=== PATIENT | female | born 1995 | race Caucasian/White ===

== ENCOUNTER 2017-06-21 18:02 | Inpatient (IN) | payer SELFPAY ==
[2017-06-21] MEDS ORDERED: LORazepam TAB(*) 1 MG PO ONE (19:16)
[2017-06-21 19:54] LABS: Hematocrit 42 % (35-47); Hemoglobin 13.6 g/dl (12.0-16.0); Mean Corpuscular HGB Conc 33 g/dl (31-36); Mean Corpuscular Hemoglobin 26 pg (27-31); Mean Corpuscular Volume 80 fL (80-97); Mean Platelet Volume 9 um3 (7.4-10.4); Red Blood Count 5.19 10^6/ul (4.0-5.4); Red Cell Distribution Width 14 % (10.5-15); White Blood Count 6.7 10^3/ul (3.5-10.8)
[2017-06-21 20:04] LABS: Urine Bilirubin Negative (Negative); Urine Glucose Negative (Negative); Urine Nitrite Negative (Negative)
[2017-06-21 20:08] LABS: ALT 24 U/L (7-52); AST 26 U/L (13-39); Albumin 4.4 g/dL (3.2-5.2); Alkaline Phosphatase 70 U/L (34-104); Anion Gap 9 mmol/L (2-11); BUN/Creatinine Ratio 17.6 (8-20); Blood Urea Nitrogen 15 mg/dL (6-24); CO2 Carbon Dioxide 26 mmol/L (22-32); Calcium 9.8 mg/dL (8.6-10.3); Chloride 103 mmol/L (101-111); EGFR African American 110.8 (>60); EGFR Non-African American 86.2 (>60); Globulin 3.5 g/dL (2-4); Glucose 93 mg/dL (70-100); Potassium 4.1 mmol/L (3.5-5.0); Sodium 138 mmol/L (133-145); Total Protein 7.9 g/dL (6.4-8.9)
[2017-06-21 20:15] LABS: Benzodiazepine Urine Screen None Detected (None Detect)
[2017-06-21 20:33] LABS: Acetaminophen < 15 mcg/mL; Alcohol < 10 mg/dL (<10); Salicylate < 2.50 mg/dL (<30)
[2017-06-21 20:47] LABS: TSH (Thyroid Stimulating Horm) 1.22 mcIU/mL (0.34-5.60)
[2017-06-21] MEDS ORDERED: Ibuprofen TAB* 600 MG PO ONE (20:54)
[2017-06-21] MEDS ORDERED: Acetaminophen TAB* 325 MG PO PRN (21:30)
[2017-06-21] MEDS ORDERED: Al Hydrox/Mg Hydrox/Simet LIQ* 30 ML UDC PO PRN (21:30)
[2017-06-22] MEDS: Vitamin THERAPEUTIC TAB PO SCH (09:10)
[2017-06-22] MEDS ORDERED: FLUoxetine CAP* 20 MG PO ONE (11:49)
--- NOTE | 2017-06-22 12:05 | PN ---
MHU: Group Therapy Note - Service Type Service Type: 17124 Group Psychotherapy - Cognitive Behavioral Group Therapy ( CBT):Patient attended CBT programming this morning and presented with flat affect that did not vary with discussion. Although responsive to direct prompts to respond to questions, patient did not engage in spontaneous conversation.
--- NOTE | 2017-06-22 14:18 | HP ---
HISTORY AND PHYSICAL: DATE OF ADMISSION: 06/21/17 SUPERVISING PSYCHIATRIST: Dr. Alin Sahni * (DICTATED BY CATIE RIDER ) JUSTIFICATION FOR ADMISSION: The patient presented to emergency department via 9.45. She had met with her [place] psychiatrist earlier in the day and expressed depressed mood with suicidal ideation. She has definitive plans and has started preparations for suicide. The patient merits hospitalization for immediate safety, evaluation, and stabilization. CHIEF COMPLAINT: "I waste a ton of time worrying what other people think of me. 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 She moved here from [place] her fresh year, then returned home for the summer. While home in [place], she started seeing a therapist and then continued mental health services at [facility] at [place]. She sees Dr. Bhandari in [facility]. The patient reports increase in depression in the past few weeks. She endorses decrease in social outings. She endorses low self-esteem, hopelessness, worthlessness, anhedonia, amotivation, and excessive guilt. She reports a decrease in appetite, denies change in weight and reports difficulty falling asleep due to anxious thoughts and then oversleeps in the morning. She has not been attending classes regularly and stopped taking her antidepressant a week ago. The patient endorses anxiety and panic attack. She states that she has been diagnosed with social anxiety. She avoids going to the bathroom in public places. She avoids making phone calls that are not to family members. She has been avoiding social interactions. She states she has sudden onset of panic and she "zones out" hyperventilates, cries, and feels overstimulated. She states that she tries to fidget or use something tactile in her hands to cope. She states she also will try to cover her eyes and ears to decrease stimulation. She identifies that she is a perfectionist at work and has been highly critical of herself when making mistakes in the past few weeks. She states that she has excessive worry about being fired despite assurance from co-workers that she is not doing anything wrong. She states she also recently received a promotion. The patient reports onset of depressed mood and anxiety dating back to middle school. As stated above, she reports that the depressive symptoms have worsened in the past weeks and she had onset of suicidal ideation in the last week. The patient reported to her psychiatrist at [facility] that she has been having thoughts of overdosing on sertraline and also has been researching how to obtain and/or make cyanide to poison herself. PSYCHIATRIC REVIEW OF SYSTEMS: The patient denies periods of obdulio. She denies AV hallucinations, depersonalizations. She denies a history of eating disorder behaviors, obsessions, or compulsions. PAST PSYCHIATRIC HISTORY: This is patient's first inpatient hospitalization. She reports seeking out therapy this past summer while home in [place] and continued with outpatient mental health services upon return to [place] for the semester. TRAUMA/ABUSE HISTORY: The patient denies abuse. She reports being bullied and ostracized for her ethnicity during middle school when living in [place]. PAST MEDICAL HISTORY: Myopia, wearing corrective lenses. The patient denies surgeries, seizures, or head injuries. ALLERGIES: No known drug allergies. SHALE MINER HISTORY: Last menstrual period last week, menarche at 14 years old. PRIMARY CARE PHYSICIAN: Dr. Gilma Mccallum, who started her on sertraline this past summer at 25 mg and this was titrated up to 100 mg. The patient has not been taking it for a week. FAMILY PSYCHIATRIC HISTORY: The patient denies. 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 She has lived in [place], [place], and [place]. Her parents are alive and well and happily . She has a 15-year-old brother who is in high school and lives at home. The patient reports that she is asexual, but heteroromantic. She states that she currently has a crush on her logistics project manager at work. She denies previous dating behavior and identifies having crushes on males in the past. She denies alcohol or substance use because "its illegal" and denies any legal or history. The patient states prior to current period of depression, she likes to write fiction stories and has been in writing club or [employer] and she likes to play video games. REVIEW OF SYSTEMS: The patient is denying headache or double vision. Denies sore throat, cough, chest pain, difficulty breathing, abdominal pain, nausea, vomiting, diarrhea, or constipation. She denies difficulty ambulating, enlarged lymph nodes, rashes, fever, or change in mentation. PHYSICAL EXAMINATION GENERAL APPEARANCE: She is well appearing and well nourished. VITAL SIGNS: Height 5 feet 4 inches, weight 150 pounds. Temp 98.0, pulse 96, respiration rate 14, O2 saturation 100%, BP 104/61. HEENT: Head and face: Normal head and face inspection. Eyes: Positive, EOMI , PERRL. Conjunctivae clear. NECK: Supple, full ROM, trachea midline. RESPIRATORY: Lung sounds clear to auscultation. Breath sounds present. CARDIOVASCULAR: RRR. Pulses are symmetrical in both upper and lower extremities. MUSCULOSKELETAL: Normal strength, ROM intact. NEUROLOGICAL: Normal sensory. Motor intact. Cranial nerves II through XII intact. She is alert and oriented and demonstrates normal gait. SKIN: Warm and dry. Color reflects adequate perfusion. MENTAL STATUS EXAM: The patient is well appearing, in no pain or distress. She is adequately groomed, wearing her own clothing. She has long back hair that tends to go over her face. She has head down and slumped posture. She appears stated age. She is cooperative and answers questions fully. She is alert and oriented x3. Concentration is fair. Her memory is 3/3. Her mood is "anxious." Her affect is she smiles and laughs nervously and congruent with reported symptoms. She has poor eye contact. Speech is rapid, soft, and articulate. Thought process is circumstantial in regards to stressors. Thought content positive for suicidal ideation. She denies AV hallucinations, homicidal ideation, or paranoid ideation. Her insight is good. Her judgment is fair. Fund of knowledge is excellent. LABORATORY DATA: From the emergency department: Her CBC was grossly unremarkable. CMP within normal limits. TSH 1.22 and beta hCG was negative. Urinalysis is within normal limits. Toxicology negative for salicylates, acetaminophen, or alcohol and her urine drug screen was negative. DIAGNOSES: Major depressive disorder, severe, recurrent; social phobia; rule out attention deficit hyperactivity disorder. ASSESSMENT: Lis is a 21-year-old [place] female, [employer] sophomore, majoring in chemistry, she presented to the emergency department after appointments with her outpatient providers where she disclosed increased depression with suicidal ideation and specific plans to overdosing her medications or create cyanide to poison herself. The patient has trialed sertraline for the past few months with mild improvement. She is agreeable to medication changes suggested by this health science writer. PLAN: Admit to adult behavioral services unit on 9.39 status. Code status is full. Placed on 15-minute checks for safety. Encouraged participation in supportive milieu, individual sessions with staff and psychoeducational groups. We will obtain MMPI for diagnostic clarification. We will titrate medications to efficacy and monitor for mood and thought content. Estimated length of stay is 2 to 5 days. Discharge planning will include outpatient providers with the patient's consent. BUD CASTILLO NP [id number]/[facility] #: [id number] OTIS
[2017-06-22] MEDS: cloNIDine TAB* 0.1 MG PO PRN (21:19)
[2017-06-23] MEDS: Vitamin THERAPEUTIC TAB PO SCH (08:15)
--- NOTE | 2017-06-23 11:42 | PN ---
Subjective - Subjective Service Type: 02756 Hosp care 15 min low complexity Subjective: Patient remains severely depressed with little vision of the future except for hoping to get out of the hospital to go back to her job in the [employer] on Monday. Looking down with very poor eye contact. Psychological testing confirmed severe depression. Did tolerate prozac and clonidine which were just started. Objective - Appearance Appearance: Well Developed/Nourished, Healthy Appearing Dysmorphic Features: No Hygiene: Normal Grooming: Well Kept - Behavior Psychomotor Activities: Abnormal-Decreased Exhibits Abnormal Movement: No - Attitude and Relatedness Attitude and Relatedness: Withdrawn Eye Contact: Poor - Speech Quality: Unpressured Latencies: Normal Quantity: Terse - Mood Patient's Decription of Mood: "Sad" - Affect Observed Affect: Constricted Affect Consistent with: Dysphoria - Thought Process Patient's Thought Process: Coherent Thought Content: Yes Passive Wish, No Suicidal Planning, No Homicidal Ideation, No Paranoid Ideation - Sensorium Experiencing Hallucinations: No, Sensorium is Clear Type of Hallucinations: Visual: No, Auditory: No, Command: No - Level of Consciousness Level of Consciousness: Alert Orientation: Yes Intact, Yes Orientated to Time, Yes Orientated to Place, Yes Orientated to Person - Impulse Control Impulse Control: Tenuous - Insight and Judgement Insight and Judgement: Fair - Group Participation Particating in Group Activities: Yes - Medication Management Medication Management Adherence: Yes Assessment - Assessment Merits Inpatient Hospitalization: For Immediate Safety, For Stabilization Inpatient DSM-IV Dx: Major Depression severe single episode Clinical Impression: Patient had been actively suicidal with plan before admission; clinical history and psychological testing support diagnosis of severe depression. She has some hopelessness about her future and this in combination with her clinical depression makes her an ongoing suicide risk although she denies racing thoughts. Plan - Plan Treatment Plan: Name: SHON MESA Birthdate: 1995 [id number] Continued Medication Management: Start Medication Medications: Current Medications Acetaminophen (Tylenol Tab*) 650 mg PO Q4H PRN PRN Reason: PAIN or TEMP > 101 F Al Hydrox/Mg Hydrox/Simethicone (Maalox Plus*) 30 ml PO Q4H PRN PRN Reason: INDIGESTION Clonidine HCl (Catapres Tab*) 0.05 mg PO BID PRN PRN Reason: ANXIETY/INSOMNIA Last Admin: 06/22/17 21:19 Dose: 0.05 mg Multivitamins (Theragran Tab*) 1 tab PO DAILY ELZA Last Admin: 06/23/17 08:15 Dose: Not Given - Discharge Plan Discharge Plan: Outpatient Follow Up Outpatient Program: [facility] at [facility]
--- NOTE | 2017-06-23 13:50 | CONSULT ---
Consult Consult: I returned call from patient's father Gio Ragsdale (release in chart). He wanted to know her condition; I said that information I had was of Major Depression of biochemical character, stresses over coursework at [employer], and acute suicidal ideation leading to us wanting to start new medication and stabilize her. He was not surprised by this and thanked me for the call.
--- NOTE | 2017-06-23 14:42 | CONS ---
PSYCHOLOGICAL REPORT DATE OF CONSULTATION: 06/23/2017. REASON FOR REFERRAL: Lis was referred for personality testing secondary to concerns regarding possible characterological vulnerabilities as well as possible lethality secondary to suicidal rumination. TEST ADMINISTERED: Lis completed the [place] Multiphasic Personality Inventory-2 and was given feedback in the context of individual conversation. This health underwriter has also seen Lis in the context of cognitive behavioral group psychotherapies by this health underwriter. 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 Her family is from [place] and are apparently supportive, although Lis currently is difficult to engage in an interview in a constructive fashion. She describes struggling with depression for quite some time, but does not identify any clear etiology or precipitant. She describes having suicidal thoughts, but does not know "an efficient way to do it." She apparently has been engaged in some researching methods of suicide, including being able to make cyanide from apple seeds. BEHAVIORAL OBSERVATIONS: Lis was initially seen by this health underwriter in the context of CBT group psychotherapy and in the midst of a lively discussion, Lis became despondent when questioned about future goals. She remained in the group, but withdrew from conversation, putting her head on the table despite a very active back and forth discussion between peers and staff. Later attempts were made to provide feedback for Lis regarding test results. Again , she had her head on the table and although was responding to this health underwriter's attempt to engage in an interview, she had her head down and speaking towards the floor rather than looking up and making eye contact. She describes having an aversion to eye contact with people, elaborating on how she experiences social anxiety as well as agoraphobia. When pressed about when her depression became, Lis was nondescript, other than saying she has struggled with it for quite some time and that she keeps expecting the next week to be better, but it never is. She would not engage in substantial conversation, trying to address possible social supports and/or difficulties with any specified causation or adjustment. She repeatedly stated that she is "a marginal person," but when pressed, acknowledged that that is not anything she would ever say to another person. She continued to engage in very profound self- deprecating statements over objections of this health underwriter. She was rather dismissive of attempts to engage in regards to correcting such hostile self-dialogue and in beginning to treat herself with appropriate socialization. She was often tearful, both in group as well as in individual conversation and simply requested that this health underwriter go see other patients. TEST RESULTS: Lis provides a valid protocol on this administration of the MMPI- 2 despite having elevated two of the three emotional stress indices to a fair degree (T=90 to 80). She subsequently has a pointed elevation on the depression scale (T=85) and with lesser elevations occurring on the anxiety index and social introversion index (T=70 and 80 respectively). Also of note, she has a very low score occurring on the hypomania scale (T=38), which is often consistent with persons who are experiencing a major depressive disorder. IMPRESSIONS AND RECOMMENDATIONS: Clinical interventions with Lis should focus on her very hostile and self-deprecating self-dialogue. She impresses as being extremely defended around this at the present time and is essentially unable to engage a productive back and forth conversation or interview process. Concerns remain that she is acutely suicidal, although she does not impress as a risk to act out while on the unit. She very clearly informed this health underwriter that if she could have thought of an efficient way to do it where she would not hurt other people, that she would have done it already. Protective factors include her not wanting to hurt her family, as well as fearful concept of what the end might be for her. Ongoing treatment should continue to try to build rapport with this very despairing young woman in hopes that she can begin to once again articulate her goals in life and see a positive future for herself. Presently, she does not envision any positive events in life, only stating "I' ll find some damn job that I don't really want" when asked about her aspirations. She also described having disinterest in her major and not being interested in any other topics either. DIAGNOSTIC IMPRESSION: Diagnostic impression supports a major depressive disorder, severe without psychosis, including persisting suicidal rumination. Carmelo oJnes, PhD Clinical Psychologist [id number]/[facility] #: [id number] OTIS
[2017-06-23] MEDS: cloNIDine TAB* 0.1 MG PO PRN (16:05)
[2017-06-24] MEDS: Vitamin THERAPEUTIC TAB PO SCH (08:52)
[2017-06-24] MEDS: cloNIDine TAB* 0.1 MG PO PRN ×2 (10:03→20:08)
[2017-06-25] MEDS: Vitamin THERAPEUTIC TAB PO SCH (09:18)
--- NOTE | 2017-06-25 16:19 | PN ---
<Ramona Pickard - Last Filed: 06/25/17 17:12> Subjective - Subjective Service Type: 57535 Hosp care 15 min low complexity Subjective: Lis is found coloring and talking with another patient in the milieu. She is pleasant and cooperative though she hesitates to share information with me until she understands that I have read other providers notes. Denies suicidal or homicidal thoughts, no urges to self injure. Eye contact good, affect is full with some smiles and nervous laughter. She states that she threw away the "ten apple seeds" from her apple today and was proud of herself doing this; in context that apple seeds could be poisonous and she plans on throwing away the seeds she has collected in her room. She reports sleeping well after taking Clonidine 0.5 mg last night. Participating in groups and milieu, has been working on a plan for her discharge which includes dropping a computer class she struggled with. Objective - Appearance Appearance: Healthy Appearing Dysmorphic Features: No Hygiene: Normal Grooming: Well Kept - Behavior Psychomotor Activities: Normal Exhibits Abnormal Movement: No - Attitude and Relatedness Attitude and Relatedness: Cooperative - though guarded at first Eye Contact: Good - Speech Quality: Unpressured Latencies: Normal Quantity: Appropriate - Mood Patient's Decription of Mood: "pretty good" - Affect Observed Affect: Fair Affect Consistent with: Euthymia - Thought Process Patient's Thought Process: Coherent, Goal Directed Thought Content: No Passive Wish, No Suicidal Planning, No Homicidal Ideation, No Paranoid Ideation - Sensorium Experiencing Hallucinations: No, Sensorium is Clear Type of Hallucinations: Visual: No, Auditory: No, Command: No - Level of Consciousness Level of Consciousness: Alert Orientation: Yes Intact, Yes Orientated to Time, Yes Orientated to Place, Yes Orientated to Person - Impulse Control Impulse Control: Intact - Insight and Judgement Insight and Judgement: Fair - Group Participation Particating in Group Activities: Yes - Medication Management Medication Management Adherence: Yes Assessment - Assessment Merits Inpatient Hospitalization: For Immediate Safety, For Ongoing Evaluation, For Discharge Planning Inpatient DSM-IV Dx: Major Depression severe single episode Clinical Impression: First inpatient 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 After reporting increased reporting suicidal ideation to her [place] psychiatrist she was brought to ED. Outpatient trial of Sertraline 100mg/day, which patient stopped 1 week prior to discharge. Fluoxetine 20mg po day restarted this day by , unclear why medication stopped after 1 dose. States Clonidine is helpful for sleep. She requires continued admission for consolidation of improvements and discharge planning. Plan - Plan Treatment Plan: Name: LIS MESA Birthdate: 1995 [id number] Medications: Current Medications Acetaminophen (Tylenol Tab*) 650 mg PO Q4H PRN PRN Reason: PAIN or TEMP > 101 F Al Hydrox/Mg Hydrox/Simethicone (Maalox Plus*) 30 ml PO Q4H PRN PRN Reason: INDIGESTION Clonidine HCl (Catapres Tab*) 0.05 mg PO BID PRN PRN Reason: ANXIETY/INSOMNIA Last Admin: 06/24/17 20:08 Dose: 0.05 mg Multivitamins (Theragran Tab*) 1 tab PO DAILY [facility] Last Admin: 06/25/17 09:18 Dose: Not Given <Jacques Segura - Last Filed: 06/25/17 19:08> Assessment - Assessment Clinical Impression: Reviewed this note written by student psychiatric nurse practitioner, Ramona Pickard, and approved it after discussion with her. Plan - Plan Treatment Plan: Name: LIS MESA Birthdate: 1995 [id number] Medications: Current Medications Acetaminophen (Tylenol Tab*) 650 mg PO Q4H PRN PRN Reason: PAIN or TEMP > 101 F Al Hydrox/Mg Hydrox/Simethicone (Maalox Plus*) 30 ml PO Q4H PRN PRN Reason: INDIGESTION Clonidine HCl (Catapres Tab*) 0.05 mg PO BID PRN PRN Reason: ANXIETY/INSOMNIA Last Admin: 06/24/17 20:08 Dose: 0.05 mg Fluoxetine HCl (Prozac Cap*) 20 mg PO DAILY [facility] Last Admin: 06/25/17 18:38 Dose: 20 mg Multivitamins (Theragran Tab*) 1 tab PO DAILY [facility] Last Admin: 06/25/17 09:18 Dose: Not Given
[2017-06-25] MEDS: FLUoxetine CAP* 20 MG PO SCH (18:38)
[2017-06-26 08:15] VITALS: BP 93/58
[2017-06-26] MEDS: FLUoxetine CAP* 20 MG PO SCH (10:47)
[2017-06-26] MEDS: Vitamin THERAPEUTIC TAB PO SCH (10:47)
[2017-06-26] MEDS ORDERED: FLUoxetine CAP* 20 MG PO ONE (12:58)
[2017-06-26] MEDS ORDERED: FLUoxetine CAP* 20 MG PO SCH (13:11)
[2017-06-26] MEDS: cloNIDine TAB* 0.1 MG PO PRN (13:23)
--- NOTE | 2017-06-26 16:24 | DS ---
CC: [facility] * DATE OF ADMISSION: 06/21/2017. DATE OF DISCHARGE: 06/26/2017. SUPERVISING PSYCHIATRIST: Dr. Alin Sahni * (dictated by CATIE Scott ). DISCHARGE DIAGNOSES: Major depressive disorder, moderate, recurrent; social phobia. CONDITION AT THE TIME OF DISCHARGE: Improved. The patient has reported much improved mood. She denies suicidal ideation and she reports that she has made goals and looking forward to completion. Her parents visited this weekend from [place] and were supportive. She states that she has decided to drop a class to decrease her academic pressure. She has identified learning more about social interactions and hopes to be able to use these skills. 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 The patient states that she has plans to dispose of apple seeds she had been collecting as a source of cyanide. She states that she had an apple over the weekend here on the unit and threw it away and that this was liberating. The patient denies suicidal ideation. She denies depressed mood. She reported improvement in anxiousness. Per staff, she has been social and interactive on the unit. MENTAL STATUS EXAM: The patient is well-appearing, in no pain or distress. She is adequately groomed, wearing her own clothing, her hair is in a braid. Her posture is erect. She has good eye contact. She is cooperative and talkative. The patient is alert and oriented times three. Concentration is good. Memory is 3/3. Her mood is "great." Her affect is congruent. Speech is soft and articulate. Thought process is logical, goal-directed and coherent. Thought content is negative for suicidal ideation. She denies A/V hallucinations, homicidal ideation, or paranoid ideation. Her insight is good. Her judgment is good. Fund of knowledge is excellent. DISCHARGE INSTRUCTIONS: Discharge instructions will be given to the patient by nursing staff. A. Medications: Fluoxetine 40 mg p.o. daily, quantity 14; Clonidine 0.05 p.o. b.i.d. prn, quantity 14. The above were electronically prescribed to [facility]. B. Diet: Regular. C. Ambulation: As tolerated. The patient is not a smoker and declines referral to tobacco cessation assistance. There are no pending labs or diagnostic studies at the time of discharge. D. Follow-up care: The patient will return to [facility] and she has an appointment today at 4:20 p.m. She will continue counseling with Emma and medication management with Dr. Flaherty. HOSPITAL COURSE: A. reason for admission: The patient presented to the emergency department via . She had met with her psychiatrist at [facility] earlier in the day and expressed depressed mood with suicidal ideation. She had made plans and preparations for suicide, including collecting apple seeds to make cyanide. She also had thoughts of overdosing on her medication. B. Psychiatric treatment rendered: The patient was admitted on the Adult Behavioral Services Unit on status. Code status is full. She was placed on 15 minute checks for safety. She was encouraged to participate in supportive milieu, individual sessions with staff and psychoeducational groups. She completed an MMPI for diagnostic clarification. She consultation by Dr. Carmelo Jones for results. The patient agreed to an increase in Fluoxetine and to a trial of Clonidine for anxiety. The patient responded well to psychiatric admission. She was interactive with staff and peers after two days on the unit. She reported improvement in mood and decrease in anxiety. Her parents visited from [place] and were supportive and understanding of the patient' s treatment and diagnoses. The patient's stressors prior to hospitalization included academic pressures and social isolation. While on the unit, she decided to drop a class to decrease her responsibilities and she also gained information about social interactions. The patient identified motivations to live and denied suicidal ideation. She states that she is ready for discharge today and would like to continue her academic and vocational responsibilities at [facility]. She has been safe on all checks. She was decreased to 30 minute observation and allowed to go on staff pass. The patient will be discharged via cab to [facility] to have a post discharge appointment today at 4:20 and she is encouraged to use crisis resources on discharge instructions and to return to the ED if symptoms worsen. Triage Register Nurse phones parents with patient consent release in chart and notified them of discharge plan via voicemail. BUD CASTILLO, YASMIN [id number]/CPS #: [id number] OTIS
== END 2017-06-26 14:30 | disposition home or self-care (01) | DRG 885 ==
LOC: ED 18:02 → BSU 20:17
PROVIDERS: ADMIT Psychiatry & Neurology Psychiatry; ATTEND Psychiatry & Neurology Psychiatry
DX: F33.1 Major depressive disorder, recurrent, moderate (principal); R45.851 Suicidal ideations; F40.10 Social phobia, unspecified
CPT/HCPCS: 36415; 80053; 80307; 80320; 80329; 81003; 84443; 84702; 85025; 90853; 96102; 99222; 99231; 99238; A9270-GY; G0480

== ENCOUNTER 2018-07-25 12:15 | Emergency (ER) | payer OTHER ==
--- NOTE | 2018-07-25 12:22 | ED ---
Psychiatric Complaint - HPI Summary HPI Summary: The pt is a 22 y/o female brought in by ambulance to [facility] c/o SI with a plan. She arrives from [facility]. She reports two previous self-harm attempts by wrapping a scarf around her neck. She says that the sx are aggravated by some mistakes she made. The pt arrives from [facility]. She was last seen at [facility] for the same sx in 2017. Home Medications Medication Instructions Recorded Confirmed Type ALPRAZolam TAB* [Xanax TAB*] 0.125 - 0.25 mg PO Q4HR PRN 07/25/18 07/25/18 History FLUoxetine CAP* [PROzac CAP*] 20 mg PO QAM 07/25/18 07/25/18 History Propranolol TAB* [Inderal TAB*] 10 mg PO DAILY 07/25/18 07/25/18 History buPROPion SR TAB* [Wellbutrin SR 100 mg PO QAM 07/25/18 07/25/18 History TAB*] hydrOXYzine HCL TAB* [Atarax 10 MG 10 - 20 mg PO BEDTIME PRN 07/25/18 07/25/18 History TAB*] - History Of Current Complaint Hx Obtained From: Patient Onset/Duration: Still Present, Other - Acute on chronic Timing: Constant Character: Depressed Aggravating Factor(s): Recent Stress Alleviating Factor(s): Nothing Related History: Positive For: Prior Psychiatric Issues Has Suicidal: Reports: Thoughts, With A Plan Has Homicidal: Denies: Thoughts, With A Plan - Allergies/Home Medications Allergies/Adverse Reactions: Allergies Allergy/AdvReac Type Severity Reaction Status Date / Time No Known Allergies Allergy Verified 06/21/17 21:38 Home Medications: Home Medications ALPRAZolam TAB* [Xanax TAB*] 0.125 - 0.25 mg PO Q4HR PRN 07/25/18 [History Confirmed 07/25/18] FLUoxetine CAP* [PROzac CAP*] 20 mg PO QAM 07/25/18 [History Confirmed 07/25/18] Propranolol TAB* [Inderal TAB*] 10 mg PO DAILY 07/25/18 [History Confirmed 07/25] buPROPion SR TAB* [Wellbutrin SR TAB*] 100 mg PO QAM 07/25/18 [History Confirmed 07/25/18] hydrOXYzine HCL TAB* [Atarax 10 MG TAB*] 10 - 20 mg PO BEDTIME PRN 07/25/18 [ History Confirmed 07/25/18] PMH/Surg Hx/FS Hx/Imm Hx Previously Healthy: No Endocrine/Hematology History: Denies: Hx Diabetes Cardiovascular History: Denies: Hx Hypercholesterolemia, Hx Hypertension Sensory History: Reports: Hx Contacts or Glasses Denies: Hx Hearing Aid Opthamlomology History: Reports: Hx Contacts or Glasses Neurological History: Reports: Hx Headaches Psychiatric History: Reports: Hx Anxiety, Hx Attention Deficit Hyperactivity Disorder, Hx Depression, Hx Community Mental Health Tx, Other Psychiatric Issues /Disorders - Self injurious behavior Denies: Hx Eating Disorder, Hx of Violent Episodes Against Others - Surgical History Surgery Procedure, Year, and Place: None. - Family History Known Family History: Negative: Hypertension, Diabetes - Social History Occupation: Student Lives: Dormitory/Roommates Alcohol Use: None Substance Use Type: Reports: None Smoking Status (MU): Never Smoked Tobacco Length of Time of Smoking/Using Tobacco: has not used or smoked tobacco products in the last 30 days Have You Smoked in the Last Year: No Review of Systems Negative: Fever Positive: no symptoms reported Psychological: Other - Positive: SI with plans Positive: Depressed All Other Systems Reviewed And Are Negative: Yes Physical Exam - Summary Physical Exam Summary: Constitutional: Well-developed, Well-nourished, Alert. (-) Distressed Skin: Warm, Dry HENT: Normocephalic; Atraumatic Eyes: Conjunctiva normal Neck: Musculoskeletal ROM normal neck. (-) JVD, (-) Stridor, (-) Tracheal deviation Cardio: Rhythm regular, rate normal, Heart sounds normal; Intact distal pulses; The pedal pulses are 2+ and symmetric. Radial pulses are 2+ and symmetric. (-) Murmur Pulmonary/Chest wall: Effort normal. (-) Respiratory distress, (-) Wheezes, (-) Rales Abd: Soft, (-) epigastric tenderness, (-) Distension, (-) Guarding, (-) Rebound Musculoskeletal: (-) Edema Lymph: (-) Cervical adenopathy Neuro: Alert, Oriented x3 Psych: Mood and affect Normal Triage Information Reviewed: Yes Vital Signs On Initial Exam: Initial Vital Signs Temp 98.9 F 07/25/18 12:38 Pulse 94 07/25/18 12:38 Resp 16 07/25/18 12:38 BP 127/80 07/25/18 12:38 Pulse Ox 100 07/25/18 12:38 Vital Signs Reviewed: Yes Diagnostics - Laboratory Result Diagrams: 07/25/18 12:51 07/25/18 12:51 Lab Statement: Any lab studies that have been ordered have been reviewed, and results considered in the medical decision making process. Re-Evaluation - Re-Evaluation First Eval Re-Evaluation Time: 14:14 Change: Improved - The patient is calm. We will downgrade her from a constant observation to 1:1. Second Eval Re-Evaluation Time: 21:20 Change: Improved - The pt says that she is no longer suicidal. Course/Dx - Course Course Of Treatment: A 22 year-old F with a hx of psychiatric problems presents to the ED with a CC of SI with a plan. A physical exam is unremarkable. In the ED course, pt was given Acetaminophen 975 mg PO and Nicotine 10 mg INH which improved the symptoms. Patient will be signed out to Dr. Emily Monroe mD at the change of shift due to a pending MHE and disposition. Dx: suicuidal ideations. Pt is agreeable with this plan. Allergies noted - Differential Dx/Clinical Impression Provider Diagnosis: Suicidal ideations Discharge - Sign-Out/Discharge Documenting (check all that apply): Sign-Out Patient Signing out patient TO: Fer Diaz - 22:00 hrs - Discharge Plan Condition: Stable Referrals: [facility] [Primary Care Provider] - - Attestation Statements Document Initiated by Scribe: Yes Documenting Scribe: Sangita Govea Provider For Whom Scribe is Documenting (Include Credential): Dr. Phillip Witt MD Scribe Attestation: Sangita Gramajo , scribed for Dr. Phillip Witt MD on 07/25/18 at 2150. Status of Scribe Document: Ready
[2018-07-25] MEDS ORDERED: Nicotine Inhaler* 10 MG AMP INH PRN (12:32)
[2018-07-25 13:16] LABS: ABS Basophils 0 10^3/ul (0-0.2); ABS Eosinophils 0.1 10^3/ul (0-0.6); ABS Lymphocytes 1.3 10^3/ul (1.0-4.8); ABS Monocytes 0.3 10^3/ul (0-0.8); ABS Neutrophils 2.3 10^3/ul (1.5-7.7); ABS Nucleated RBC 0 10^3/ul; Eosinophil % 1.7 %; Hematocrit 37 % (35-47); Lymphocyte % 32.3 %; Mean Corpuscular HGB Conc 33 g/dl (31-36); Mean Corpuscular Hemoglobin 25 pg (27-31); Mean Corpuscular Volume 76 fL (80-97); Mean Platelet Volume 8.7 fL (7.4-10.4); Nucleated Red Blood Cells % 0.1; Platelet Count 259 10^3/ul (150-450); Red Blood Count 4.89 10^6/ul (4.00-5.40); Red Cell Distribution Width 15 % (10.5-15); White Blood Count 4.1 10^3/ul (3.5-10.8)
[2018-07-25 13:27] LABS: EGFR Non-African American 74.1 (>60)
[2018-07-25 15:04] LABS: Urine Appearance Cloudy; Urine Blood 3+ (Negative); Urine Color Yellow; Urine Ketones Negative (Negative); Urine Protein Negative (Negative); Urine Red Blood Cell 3+(>10/hpf) (Absent); Urine Urobilinogen Negative (Negative); Urine White Blood Cell Trace(0-5/hpf) (Absent)
[2018-07-25] MEDS ORDERED: Acetaminophen TAB* 325 MG PO ONE (17:12)
--- NOTE | 2018-07-25 22:06 | ED ---
Progress - Progress Note Progress Note: Patient was signed out from Dr. Witt to Dr. Diaz upon provider shift change pending mental health evaluation and disposition. - Consult/PCP Time Called: 15:00 Re-Evaluation - Re-Evaluation First Eval Re-Evaluation Time: 14:14 Change: Improved - The patient is calm. We will downgrade her from a constant observation to 1:1. Second Eval Re-Evaluation Time: 21:20 Change: Improved - The pt says that she is no longer suicidal. Course/Dx - Course Course Of Treatment: Patient was signed out from Dr. Witt to Dr. Diaz upon provider shift change pending mental health evaluation and disposition. Patient will be signed out to Dr. Anderson pending MHE and disposition. - Diagnoses Provider Diagnoses: Suicidal ideations Discharge - Sign-Out/Discharge Documenting (check all that apply): Sign-Out Patient, Receiving Sign-Out Signing out patient TO: Rowdy Anderson Receiving patient FROM: Phillip Witt - Discharge Plan Condition: Stable [facility] [Primary Care Provider] - - Attestation Statements Document Initiated by Scribe: Yes Documenting Scribe: Katie Soto Provider For Whom Scribe is Documenting (Include Credential): Fer Diaz MD Scribe Attestation: Katie Gramajo, scribed for Fer Diaz MD on 07/26/18 at 0604. Status of Scribe Document: Ready
--- NOTE | 2018-07-26 07:24 | ED ---
Progress - Progress Note Progress Note: Receiving sign out from Dr. Diaz, pending MHE and disposition. Pt will be discharged home with a final dx of adjustment disorder. Course/Dx - Course Course Of Treatment: Nurses note reviewed. - Diagnoses Provider Diagnoses: Adjustment disorder - Provider Notifications Discussed Care Of Patient With: Alin Sahni Time Discussed With Above Provider: 09:25 Instructed by Provider To: Other - Pending collateral for pt's discharge. Discharge - Sign-Out/Discharge Documenting (check all that apply): Patient Departure - Discharge, Receiving Sign-Out Receiving patient FROM: Fer Diaz - Discharge Plan Condition: Stable Disposition: HOME Referrals: [facility] [Primary Care Provider] - - Attestation Statements Document Initiated by Scribe: Yes Documenting Scribe: Anabel Klein Provider For Whom Scribe is Documenting (Include Credential): Rowdy Anderson MD Scribe Attestation: Anabel Gramajo, scribed for Rowdy Anderson MD on 07/26/18 at 1042. Status of Scribe Document: Ready
--- NOTE | 2018-07-26 09:17 | PN ---
ED Flex Patient Progress Note Date of Service: 07/26/18 Subjective: 22 y.o. female Jefry romo came to hospital with SI and allegedly placed noose around neck to self-harm. Patient states she's stressed about final exams this week and got overwhelmed. Currently denies SI and wants to return to campus to finish exams and go home for holiday. Case is awaiting collateral information from therapist and family. Objective: young female in scrubs, clean and well groomed; polite; denies SI or HI; euthymic Assessment: Possible adjustment disorder Plan: Patient needs more collateral information to reassure us for her safety. Will continue to evaluate and assess for most appropriate disposition. Will continue outpatient meds for now. Vital Signs Temp Pulse Resp BP Pulse Ox 98.0 F 78 16 109/77 100 07/25/18 21:41 07/25/18 21:41 07/25/18 21:41 07/25/18 21:41 07/25/18 21:41 Lab Results - Entire Visit 07/25/18 07/25/18 07/25/18 14:44 14:44 12:51 WBC RBC Hgb Hct MCV MCH MCHC RDW Plt Count MPV Neut % (Auto) Lymph % (Auto) Green % (Auto) Eos % (Auto) Baso % (Auto) Absolute Neuts (auto) Absolute Lymphs (auto) Absolute Monos (auto) Absolute Eos (auto) Absolute Basos (auto) Absolute Nucleated RBC Nucleated RBC % Sodium 138 Potassium 3.5 Chloride 106 Carbon Dioxide 26 Anion Gap 6 BUN 12 Creatinine 0.96 H Est GFR ( Amer) 89.7 Est GFR (Non-Af Amer) 74.1 BUN/Creatinine Ratio 12.5 Glucose 95 Calcium 9.1 Total Bilirubin 0.80 AST 14 ALT 8 Alkaline Phosphatase 63 Total Protein 7.1 Albumin 4.2 Globulin 2.9 Albumin/Globulin Ratio 1.4 TSH 1.25 Urine Color Yellow Urine Appearance Cloudy Urine pH 7.0 Ur Specific [place] 1.010 Urine Protein Negative Urine Ketones Negative Urine Blood 3+ A Urine Nitrate Negative Urine Bilirubin Negative Urine Urobilinogen Negative Ur Leukocyte Esterase Negative Urine WBC (Auto) Trace(0-5/hpf) Urine RBC (Auto) 3+(>10/hpf) A Ur Squamous Epith Cells Present A Urine Bacteria Absent Urine Glucose Negative Salicylates < 2.50 Urine Opiates Screen None detected Acetaminophen < 15 Ur Barbiturates Screen None detected Ur Phencyclidine Scrn None detected Ur Amphetamines Screen None detected U Benzodiazepines Scrn None detected Urine Cocaine Screen None detected U Cannabinoids Screen None detected Serum Alcohol < 10 07/25/18 12:51 WBC 4.1 RBC 4.89 Hgb 12.0 Hct 37 MCV 76 L MCH 25 L MCHC 33 RDW 15 Plt Count 259 MPV 8.7 Neut % (Auto) 56.7 Lymph % (Auto) 32.3 Green % (Auto) 8.1 Eos % (Auto) 1.7 Baso % (Auto) 1.2 Absolute Neuts (auto) 2.3 Absolute Lymphs (auto) 1.3 Absolute Monos (auto) 0.3 Absolute Eos (auto) 0.1 Absolute Basos (auto) 0 Absolute Nucleated RBC 0 Nucleated RBC % 0.1 Sodium Potassium Chloride Carbon Dioxide Anion Gap BUN Creatinine Est GFR ( Amer) Est GFR (Non-Af Amer) BUN/Creatinine Ratio Glucose Calcium Total Bilirubin AST ALT Alkaline Phosphatase Total Protein Albumin Globulin Albumin/Globulin Ratio TSH Urine Color Urine Appearance Urine pH Ur Specific [place] Urine Protein Urine Ketones Urine Blood Urine Nitrate Urine Bilirubin Urine Urobilinogen Ur Leukocyte Esterase Urine WBC (Auto) Urine RBC (Auto) Ur Squamous Epith Cells Urine Bacteria Urine Glucose Salicylates Urine Opiates Screen Acetaminophen Ur Barbiturates Screen Ur Phencyclidine Scrn Ur Amphetamines Screen U Benzodiazepines Scrn Urine Cocaine Screen U Cannabinoids Screen Serum Alcohol
[2018-07-26] MEDS ORDERED: Propranolol TAB* 10 MG PO SCH (10:00)
[2018-07-26] MEDS ORDERED: FLUoxetine CAP* 20 MG PO SCH (10:00)
[2018-07-26] MEDS ORDERED: buPROPion SR TAB.SR* 100 MG PO SCH (10:00)
[2018-07-26 17:06] VITALS: BP 121/90
--- NOTE | 2018-07-27 06:38 | PN ---
Progress Note - Progress Note Date of Service: 07/25/18 Note: Urine culture grew group b strep However, no nitrites or leuks on UA Patient asymptomatic for UTI Will not treat at this time.
== END 2018-07-26 17:00 | disposition home or self-care (01) ==
LOC: ED 12:15
DX: R45.851 Suicidal ideations (principal)
CPT/HCPCS: 36415; 80053; 80307; 80320; 80329; 81003; 81015; 84443; 85025; 87077; 87086; 99285; A9270-GY; G0480